=== PATIENT | female | born 1990 | race Caucasian/White ===

== ENCOUNTER 2023-08-02 14:53 | Emergency (ER) | payer MEDICAID ==
[~2023-08-02] VITALS: Ht 152.4 cm; Wt 79.5 kg
[2023-08-02 15:12] VITALS: TEMP 98
[2023-08-02] MEDS: ACETAMINOPHEN/CODEINE 300-30 MG TABLET PO ONE (16:32)
[2023-08-02] MEDS: KETOROLAC TROMETHAMINE 60 MG/2 ML VIAL IM ONE (16:33)
[2023-08-02 18:10] VITALS: BP 118/71; PULSE 82; RESP 18
== END 2023-08-02 18:25 | disposition home or self-care (01) ==
LOC: EMS 14:55
DX: M25.531 Pain in right wrist (principal)
CPT/HCPCS: 99283; 73110; 29125; 96372; J1885